=== PATIENT | female | born 1980 | race Caucasian/White ===

== ENCOUNTER 2017-01-25 11:55 | Inpatient (IN) | payer OTHER ==
[~2017-01-25] VITALS: Ht 177.8 cm; Wt 93.2 kg
[~2017-01-25 11:55] MED LIST: OXYC-302 PO
[2017-01-25] MEDS ORDERED: SODIUM CHLORIDE 0.9% 1,000 ML IV ONE (12:53)
[2017-01-25] MEDS ORDERED: SODIUM CHLORIDE FLUSH 10ML SYR IVF ONE (13:00)
[2017-01-25] MEDS ORDERED: ONDANSETRON 2MG/ML, 2ML IVPush ONE (13:00)
[2017-01-25] MEDS ORDERED: SODIUM CHLORIDE 0.9% 1,000ML IVBOLUS ONE (13:00)
[2017-01-25] MEDS ORDERED: MECLIZINE CHEWABLE 25 MG TAB PO ONE (13:00)
[2017-01-25] MEDS ORDERED: MECLIZINE CHEWABLE 25 MG TAB ONE (13:13)
[2017-01-25] MEDS ORDERED: ONDANSETRON 2MG/ML, 2ML ONE ×2 (13:13→17:10)
[2017-01-25 13:43] LABS: BLOOD UREA NITROGEN 10 mg/dL (7-18)
[2017-01-25 13:48] LABS: ASPARTATE AMINO TRANSFERASE 10 U/L (15-37)
[2017-01-25] MEDS ORDERED: DIAZEPAM 5 MG/ML, 2ML ONE (14:33)
[2017-01-25] MEDS ORDERED: DIAZEPAM 5 MG/ML, 2ML IV ONE (15:00)
[2017-01-25] MEDS ORDERED: LABETALOL 5MG/ML, 20ML IV PRN (17:30)
[2017-01-25] MEDS ORDERED: BISACODYL 10 MG SUPP PR PRN (17:30)
[2017-01-25] MEDS ORDERED: DOCUSATE 100 MG CAPSULE PO PRN (17:30)
[2017-01-25] MEDS ORDERED: MORPHINE SULFATE 4 MG/ML, 1ML IVPush PRN (17:30)
[2017-01-25] MEDS ORDERED: POLYETHYLENE GLYCOL 17 GM PACKET PO PRN (17:30)
[2017-01-25] MEDS ORDERED: ACETAMINOPHEN 325 MG TABLET PO PRN (17:30)
[2017-01-25] MEDS ORDERED: SODIUM CHLORIDE FLUSH 10ML SYR IVF PRN (17:30)
[2017-01-25] MEDS ORDERED: PSEUDOEPHEDRINE 30 MG TABLET PO ONE (17:30)
[2017-01-25] MEDS ORDERED: ONDANSETRON 2MG/ML, 2ML IVP PRN (17:30)
[2017-01-25] MEDS ORDERED: GADOBUTROL 10 MMOL/10 ML PFS ONE (18:54)
[2017-01-25] MEDS: AMPICILLIN/SULBACTAM 3 GM in SODIUM CHLORIDE 0.9% 100 ML IV SCH ×2 (20:32→23:14)
[2017-01-25] MEDS: SODIUM CHLORIDE 0.9% 1,000 ML IV SCH (20:33)
[2017-01-25] MEDS: ENOXAPARIN 40 MG/0.4 ML SQ SCH (20:34)
[2017-01-25] MEDS: DIAZEPAM 5 MG/ML, 2ML IV SCH (20:35)
[2017-01-25] MEDS: MECLIZINE CHEWABLE 25 MG TAB PO SCH (20:45)
[2017-01-25 23:20] VITALS: BP 108/71
[2017-01-26 02:51] VITALS: BP 112/72
[2017-01-26] MEDS ORDERED: LORA10TA75 PO (03:24)
[2017-01-26] MEDS ORDERED: AMOX CLAV (03:29)
[2017-01-26] MEDS: SODIUM CHLORIDE 0.9% 1,000 ML IV SCH (03:31)
[2017-01-26] MEDS: AMPICILLIN/SULBACTAM 3 GM in SODIUM CHLORIDE 0.9% 100 ML IV SCH ×4 (06:15→23:54)
[2017-01-26] MEDS: DIAZEPAM 5 MG/ML, 2ML IV SCH ×3 (06:15→23:53)
[2017-01-26 08:07] VITALS: BP 120/68
[2017-01-26] MEDS: MECLIZINE CHEWABLE 25 MG TAB PO SCH ×3 (09:29→20:25)
[2017-01-26 14:45] VITALS: BP 123/80
[2017-01-26 19:41] VITALS: BP 135/87
[2017-01-26] MEDS: ENOXAPARIN 40 MG/0.4 ML SQ SCH (20:26)
[2017-01-27 02:26] VITALS: BP 103/69
[2017-01-27] MEDS: AMPICILLIN/SULBACTAM 3 GM in SODIUM CHLORIDE 0.9% 100 ML IV SCH ×2 (05:54→13:03)
[2017-01-27 07:04] VITALS: BP 118/79
[2017-01-27] MEDS: DIAZEPAM 5 MG/ML, 2ML IV SCH ×2 (08:26→16:23)
[2017-01-27] MEDS: MECLIZINE CHEWABLE 25 MG TAB PO SCH ×3 (08:26→21:41)
[2017-01-27] MEDS ORDERED: GADOBUTROL 10 MMOL/10 ML VIAL ONE (09:28)
[2017-01-27 13:28] VITALS: BP 133/87
[2017-01-27 19:41] VITALS: BP 139/87
[2017-01-27] MEDS ORDERED: TMP PO SCH (21:00)
[2017-01-27] MEDS ORDERED: SULFAMETH PO SCH (21:00)
[2017-01-27] MEDS: SULFAMETH./TRIMETHOPRIM DS 800MG/160MG TABLET PO SCH (21:04)
[2017-01-27] MEDS: ENOXAPARIN 40 MG/0.4 ML SQ SCH (21:09)
[2017-01-27] MEDS: DIAZEPAM 5 MG TABLET PO SCH (23:45)
[2017-01-28 03:37] VITALS: BP 110/69
[2017-01-28 07:30] VITALS: BP 121/78
[2017-01-28] MEDS ORDERED: DIAZ5TAB4 PO (08:22)
[2017-01-28] MEDS ORDERED: MECL-85 PO (08:22)
[2017-01-28] MEDS: SULFAMETH./TRIMETHOPRIM DS 800MG/160MG TABLET PO SCH (08:42)
[2017-01-28] MEDS: MECLIZINE CHEWABLE 25 MG TAB PO SCH (08:42)
== END 2017-01-28 10:13 | disposition home or self-care (01) | DRG 149 ==
LOC: ED 17:07 → EDIP 17:08 → ED 17:13 → 3NW 19:04
PROVIDERS: ADMIT Internal Medicine; ATTEND Internal Medicine
DX: R42 Dizziness and giddiness (principal); G93.5 Compression of brain; F17.210 Nicotine dependence, cigarettes, uncomplicated; D72.829 Elevated white blood cell count, unspecified; Z88.0 Allergy status to penicillin; Z80.9 Family history of malignant neoplasm, unspecified
CPT/HCPCS: 36415; 70450; 70546; 70553; 80053; 81003; 84439; 84443; 85025; 93005; 96361; 96374; 96375; 96376; A9585; J0295; J1650; J2405; J3360; J7030